=== PATIENT | female | born 1990 | race Two or more races ===

== ENCOUNTER 2018-09-02 15:55 | Emergency (ER) | payer OTHER ==
[~2018-09-02] VITALS: Ht 157.5 cm; Wt 83.5 kg
[~2018-09-02 15:55] MED LIST: A/B OTIC15 ML; FIORICET1 TAB PO; LIO10 PO; MOTRIN800 MG PO; NOR10T PO
[2018-09-02 16:02] VITALS: Ht 157.5 cm; Wt 83.5 kg
[2018-09-02 19:16] VITALS: BP 103/58
== END 2018-09-02 19:16 | disposition home or self-care (01) ==
LOC: ED 15:55
DX: R51 Headache (principal); R20.2 Paresthesia of skin; I10 Essential (primary) hypertension
CPT/HCPCS: J2765